=== PATIENT | male | born 1985 | race African-American/Black ===

== ENCOUNTER 2021-12-20 21:38 | Emergency (ER) | payer SELFPAY ==
[2021-12-20] MEDS ORDERED: Boostrix 0.5 ML (Tdap) VIAL ONE (22:03)
[2021-12-20] MEDS ORDERED: Cephalexin 500 MG CAP ONE (22:36)
== END 2021-12-20 22:40 | disposition home or self-care (01) ==
LOC: MADERS 21:38
DX: S60.415A Abrasion of left ring finger, initial encounter (principal); W22.8XXA Striking against or struck by other objects, initial encounter
CPT/HCPCS: 90471; 90715

== ENCOUNTER 2022-06-02 04:04 | Emergency (ER) | payer SELFPAY ==
[2022-06-02] MEDS ORDERED: predniSONE 20 MG TAB ONE (04:44)
== END 2022-06-02 04:54 | disposition home or self-care (01) ==
LOC: MADERS 04:04
DX: M54.16 Radiculopathy, lumbar region (principal)
CPT/HCPCS: 99283; J7512

== ENCOUNTER 2022-11-05 18:53 | Emergency (ER) | payer SELFPAY ==
[2022-11-05] MEDS ORDERED: Ibuprofen 600 MG TAB ONE (19:25)
[2022-11-05] MEDS ORDERED: Dexamethasone 4 MG TAB ONE (19:25)
== END 2022-11-05 19:40 | disposition home or self-care (01) ==
LOC: MADERS 18:53
DX: M54.31 Sciatica, right side (principal)
CPT/HCPCS: 99283; J8540

== ENCOUNTER 2023-04-10 21:31 | Emergency (ER) | payer OTHER, SELFPAY ==
[2023-04-10] MEDS ORDERED: Ondansetron ODT 4 MG TAB ONE (22:33)
== END 2023-04-10 22:37 | disposition home or self-care (01) ==
LOC: MADERS 21:31
DX: A05.9 Bacterial foodborne intoxication, unspecified (principal); B07.0 Plantar wart
CPT/HCPCS: 99283; Q0162